=== PATIENT | male | born 1985 | race Two or more races ===

== ENCOUNTER → 2025-01-30 | Emergency (ER) | payer OTHER ==
[~2025-01-30] VITALS: Ht 185.4 cm; Wt 90.3 kg
[~2025-01-30] MED LIST: ASPIRIN 81 MG TAB.CHEW ONE
[2025-01-30 13:00] VITALS: BP 154/76; TEMP 97.8; O2SAT 99
[2025-01-30] MEDS: ASPIRIN EC 81 MG TABLET.DR PO ONE (13:07)
== END ==
LOC: EDSEX 12:18 → ER 12:18
DX: I21.19 ST elevation (STEMI) myocardial infarction involving other coronary artery of inferior wall (principal); I12.0 Hypertensive chronic kidney disease with stage 5 chronic kidney disease or end stage renal disease; E11.22 Type 2 diabetes mellitus with diabetic chronic kidney disease; N18.6 End stage renal disease; Z88.5 Allergy status to narcotic agent; Z91.158 Patient's noncompliance with renal dialysis for other reason; Z99.2 Dependence on renal dialysis; Z60.2 Problems related to living alone